=== PATIENT | female | born 1940 | race African-American/Black ===

== ENCOUNTER 2024-05-15 08:15 | Emergency (ER) | payer MEDICARE, SELFPAY ==
[2024-05-15 08:16] VITALS: BP 147/79; PULSE 77; RESP 18; TEMP 36.5; O2SAT 97; BMI 21.7
[2024-05-15 08:21] VITALS: BP 149/79; PULSE 75; O2SAT 97
--- NOTE | 2024-05-15 08:24 | PC.NURSE ---
in room talking with patient.
--- NOTE | 2024-05-15 08:29 | CT_ITS ---
PROCEDURE INFORMATION: Exam: CT Head Without Contrast Exam date and time: 05/15/2024 9:12 AM Age: 84 years old Clinical indication: Pain; Headache; Additional info: Global headache TECHNIQUE: Imaging protocol: Computed tomography of the head without contrast. Radiation optimization: All CT scans at this facility use at least one of these dose optimization techniques: automated exposure control; mA and/or kV adjustment per patient size (includes targeted exams where dose is matched to clinical indication); or iterative reconstruction. COMPARISON: No relevant prior studies available. FINDINGS: Brain: There is no evidence of acute intracranial hemorrhage, extra-axial collection or locoregional mass effect. There are scattered hypodensities in the periventricular and subcortical white matter. The appearance is nonspecific, but most likely represents chronic small vessel disease in a person of this age Cerebral ventricles: The ventricles, sulci and cisterns are normal in size and configuration for patient's age. No hydrocephalus or midline structure shift Pituitary gland and sella: Sellar/parasellar structures, craniocervical junction and orbits are unremarkable Paranasal sinuses: Visualized sinuses are unremarkable. No fluid levels. Mastoid air cells: Visualized mastoid air cells are well aerated. Auditory system: Nodular soft tissue thickening in the right external auditory canal. While nonspecific statistically represent cerumen. Bones: No calvarial fracture Soft tissues: Unremarkable. IMPRESSION: No acute intracranial abnormality. No calvarial fracture.
--- NOTE | 2024-05-15 08:32 | ED_ITS ---
Discharge Plan Disposition Patient Disposition: Home, Self-Care Prescriptions Prescriptions: New promethazine 12.5 mg tablet 12.5 mg PO TID PRN (Reason: nausea and vomiting) Qty: 12 0RF Rx Instructions: 3 doses during day; last dose no later than 4 hr before bedtime Referrals Follow up/Referrals: Provider,Referral, MD [Primary Care Provider] - See instructions Activity Restrictions/Add. Instructions Additional Instructions/Restrictions: At this time it was felt you are safe to be discharged home. If new or worsening symptoms please do not hesitate to return the emergency department. Please take your medications as prescribed. Clinical Impressions Clinical Impression: Headache, Nausea Print Language Print Language: Sinhala Discharge ED Provider: Jose Smith General Adult HPI General Chief complaint: Dizziness Stated complaint: light headed Time Seen by Provider: 05/15/24 08:18 History of Present Illness HPI narrative: Patient is a 84-year-old female with past medical history of previous headaches and nausea who presents emergency department for evaluation of headache and nausea. Onset was subacute over the last 2 weeks, she gets lightheaded when rising from a seated position, does not occur at rest. No vision changes, speech changes gait changes. Her headache is holocranial however slightly worse in the front. She has had these headaches before and attributed it to being dehydrated as she does not drink enough water. She is not on headache control medicines. She also has nausea for which she is on ondansetron which does not seem to be doing very much for her. She does not have abdominal pain or chest pain. No trauma or true syncope. There is associated dysuria. No other acute complaints at this time. Related Data Previous Rx's ?Medication ?Instructions ?Recorded promethazine 12.5 mg tablet 12.5 mg PO TID PRN nausea and 05/15/24 vomiting #12 tabs Allergies Allergy/AdvReac Type Severity Reaction Status Date / Time No Known Allergies Allergy Verified 05/15/24 08:38 [facility] Disclaimer: The information contained in this section may have been updated after the patient was seen, as this information can be updated by other users. Social History Smoking Status: Never smoker alcohol intake: never current occupational status: other ROS Obtained: Yes Systems reviewed as appropriate & no additional complaints except as documented Physical Exam General General appearance: alert and in no apparent distress Head Head exam: atraumatic and normocephalic Eye Eye exam: Present PERRL and EOMI ENT ENT exam: Present mucous membranes moist Neck Neck exam: Present normal inspection Chest Chest inspection: Present normal inspection and symmetric chest wall rise Respiratory Respiratory exam: Present normal lung sounds bilaterally; Absent respiratory distress Cardiovascular Cardiovascular exam: Present regular rate and normal rhythm Abdominal Exam Abdominal exam: Present soft; Absent tenderness Extremities Exam Extremities exam: Present normal inspection Neurological Exam Neurological exam: Present alert, oriented X3, CN II-XII intact, normal gait and other ([id number] intact bilaterally); Absent motor sensory deficit Psychiatric Psychiatric exam: Present normal affect Skin Skin exam: Present warm and dry Medical Decision Making Medical Records Screening: Per USPSTF and CDC recommendations, given the prevalence of disease in our region, it is our hospital?s policy to screen for HIV and viral Hepatitis for all patients aged 18 and over and those with ongoing risk factors. Jordon Inquiry Pt receiving controlled substance: No Vital Signs: 05/15/24 08:16 05/15/24 08:21 Temperature 97.7 F Temperature Source Oral Pulse Rate 75 Pulse Rate [Right] 77 Respiratory Rate 18 Blood Pressure 149/79 H Blood Pressure [Right Arm] 147/79 H Blood Pressure Mean [Right Arm] 101 02 Sat by Pulse Oximetry 97 97 Oxygen Delivery Method Room Air Lab Data Lab Results 05/15/24 08:30: Urine Color Yellow, Urine Appearance Clear, Urine pH 6.0, Ur Specific [place] 1.015, Urine Protein Negative, Urine Glucose (UA) Negative, Urine Ketones Negative, Urine Blood Negative, Urine Nitrate Negative, Urine Bilirubin Negative, Urine Urobilinogen 0.2, Ur Leukocyte Esterase 1+ A, Urine RBC None, Urine WBC 3-5, Ur Squamous Epith Cells Occasional, Ur Transition Epith Cell Occ, Urine Bacteria Trace 05/15/24 08:43: SARS-CoV-2 (PCR) Not detected, Influenza A Untype (PCR) Not detected, Influenza Type B (PCR) Not detected 05/15/24 08:48: WBC 3.5 L, RBC 4.47, Hgb 13.3, Hct 39.7, MCV 88.8, MCH 29.8, MCHC 33.6, RDW 15.4, Plt Count 177, MPV 7.6, Neut % (Auto) 49.1, Lymph % (Auto) 42.8, [place] % (Auto) 6.2, Eos % (Auto) 1.0, Baso % (Auto) 0.9, Neut # (Auto) 1.7 L, Lymph # (Auto) 1.5, [place] # (Auto) 0.2, Eos # (Auto) 0.0, Baso # (Auto) 0.0, Sodium 138, Potassium 3.8, Chloride 103, Carbon Dioxide 31 H, Anion Gap 7.8, BUN 15, Creatinine 1.10 H, Estimated Creat Clear 36, Estimated GFR 47 L, Est GFR ( Amer) 57 L, Glucose 101 H, Calcium 9.6, Total Bilirubin 0.9, AST 30, ALT 20, Alkaline Phosphatase 55, Total Protein 6.8, Albumin 4.1, Globulin 2.7, Albumin/Globulin Ratio 1.5, Lipase 119 05/15/24 08:48 05/15/24 08:48 Orders (Tests/Meds): ED MEDICATIONS Discontinued Medications Generic Name Dose Route Start Last Admin Trade Name Freq PRN Reason Stop Dose Admin Acetaminophen 1,000 mg 05/15/24 08:29 05/15/24 09:38 Acetaminophen 500mg Tab PO 05/15/24 08:30 1,000 mg ONCE ONE Administration Sodium Chloride 1,000 mls @ 999 mls/hr 05/15/24 08:29 05/15/24 09:38 Sod Chlor 0.9% 1000ml Bag IV 05/15/24 09:29 999 mls/hr .Q1H1M ONE Administration Promethazine HCl 12.5 mg 05/15/24 08:29 05/15/24 09:38 Promethazine Hcl 25mg/Ml 1ml Vial IV 05/15/24 08:30 12.5 mg ONCE ONE Administration Sodium Chloride 25 ml 05/15/24 08:29 05/15/24 09:38 Sodium Chloride 0.9% 25ml Bag IV 05/15/24 08:30 25 ml ONCE ONE Administration ORDERS Category Date Time Status CT head/brain wo con Stat Cat Scan 05/15/24 08:29 Completed CBC w/Auto Diff [Complete Blood Count Auto Diff] Stat Lab 05/15/24 08:48 Completed CMP [Comprehensive Metabolic Panel] Stat Lab 05/15/24 08:48 Completed Lipase Stat Lab 05/15/24 08:48 Completed Rapid PCR Covid and Flu A/B Stat Lab 05/15/24 08:43 Completed UA [Urinalysis and Microscopic] Stat Lab 05/15/24 08:30 Completed Urine Culture Stat Micro 05/15/24 08:30 Received ECG Data Tracing #1: Independently interpreted by me rate is 60, rhythm is regular, axis is normal, no ST elevation in anatomical contiguous leads, QTc 421. No evidence of electrical LVH, no dagger Q waves in the lateral leads, no prolonged QT or high degree AV block. Medical Decision Narrative: In summary patient is 84-year-old female past medical history described above presents emergency department for evaluation of subacute on chronic dizziness and nausea. Patient is hemodynamically stable nontoxic-appearing upon arrival, afebrile with a nonfocal neurologic exam. Unfortunately patient has no baseline labs or imaging in our system to compare to. Given this differential includes vasovagal presyncope, pancreatitis, urinary tract infection, primary headache, intracranial mass, among others. Workup will be conducted with hematologic labs, EKG, noncontrasted CT scan of the head, viral swab. Initial inventions include crystalloid bolus, Tylenol, Phenergan. Initial workup reviewed by me, hematologic labs are nonactionable, no significant leukocytosis, no TRISTEN, no critical electrolyte abnormality. Urinalysis interpreted by me and not consistent with infection. Viral swab negative. Noncontrasted CT scan informally visualized by me, no acute large intraparenchymal hemorrhage. Formal read shows no acute pathology. Upon repeat evaluation patient is well-appearing tolerating p.o. at bedside. Given this patient is appropriate for discharge at this time. Critical Care Critical Care Time Critical Care Time: No
[2024-05-15 08:39] LABS: Microscopic, Urine URINE MICROSCOPIC (MICROSCOPIC)
--- NOTE | 2024-05-15 08:40 | ECG_ITS ---
APPROVED REPORT Exam: Resting ECG HR:60 bpm ECG Measurements Heart Rate 60 AXES NJ 152 P 48 QRSd 98 QRS 7 QT 421 T 56 QTc 421 Conclusion SINUS RHYTHM NORMAL ECG Electronically signed by : NANETTE BENSON, 05/15/2024 15:01:30
[2024-05-15 08:47] LABS: Coronavirus 19, PCR Not Detected (NotDetected); Influenza A, PCR Not Detected (NotDetected); Influenza B, PCR Not Detected (NotDetected)
[2024-05-15 08:51] LABS: Appearance,Urine CLEAR (Clear); Bilirubin,Urine Negative (Negative); Blood, Urine Negative (Negative); Color,Urine YELLOW (Yellow); Glucose,Urine (UA) Negative (Negative); Ketones,Urine Negative (Negative); Leukocyte Esterase,Urine 1+ (Negative); Nitrate,Urine Negative (Negative); Protein,Urine Negative (Negative); Specific Gravity, Urine 1.015 (1.005-1.030); Urobilinogen,Urine 0.2 EU/dl (0.2)
[2024-05-15 09:00] LABS: Basophils % 0.9 % (0.1-2.0); Hematocrit 39.7 % (37.0-47.0); Hemoglobin 13.3 g/dL (12.2-16.2); Lymphocytes # 1.5 K/mm3 (0.7-4.5); Lymphocytes % 42.8 % (10-50); Mean Corpuscular HGB Conc 33.6 g/dL (31.8-35.4); Mean Corpuscular Hemoglobin 29.8 pg (27.0-31.2); Mean Corpuscular Volume 88.8 fl (81-99); Mean Platelet Volume 7.6 fl (7.4-10.4); Monocytes # 0.2 K/mm3 (0.1-1.0); Monocytes % 6.2 % (1.7-9.3); Neutrophils # 1.7 K/mm3 (1.8-7.8); Neutrophils % 49.1 % (37.0-80.0); Platelet Count 177 K/mm3 (142-424); Red Blood Count 4.47 M/mm3 (4.20-5.40); Red Cell Distribution Width 15.4 % (11.5-17.5); White Blood Count 3.5 K/mm3 (4.8-10.8)
[2024-05-15 09:11] LABS: Alanine Aminotransferase 20 U/L (12-78); Albumin Level 4.1 g/dl (3.5-5.0); Albumin/Globulin Ratio 1.5 (1.1-1.8); Alkaline Phosphatase 55 U/L (38-126); Anion Gap 7.8 mEq/L (5-15); Aspartate Amino Transferase 30 U/L (14-36); Bilirubin,Total 0.9 mg/dl (0.2-1.3); Blood Urea Nitrogen 15 mg/dl (7-17); Calcium 9.6 mg/dl (8.4-10.2); Carbon Dioxide 31 mmol/L (22.0-30.0); Chloride 103 mmol/L (98-107); Creatinine Clearance Estimated 36 mL/min (50-200); Estimated Glomerular Filt Rate 47 ml/min (>60); GFR (African American) 57 ML/MIN (>60); Globulin 2.7 g/dL (1.3-3.2); Glucose 101 mg/dl (74-100); Lipase 119 U/L (23-300); Potassium 3.8 mmoL/L (3.5-5.1); Sodium 138 mmol/L (136-145); Total Protein,Serum 6.8 g/dl (6.3-8.2)
[2024-05-15 09:30] LABS: Bacteria,Urine Trace /lpf; Squamous Epithelial Cell,Urine Occasional #/hpf (0-5); Transitional Epi Cells,Urine OCC #/lpf (0-3)
[2024-05-15] MEDS: 0.9 % SODIUM CHLORIDE 1000ML 1,000 ML 999 ML IV (09:38)
[2024-05-15] MEDS: PROMETHAZINE HCL 25MG/ML 1ML VIAL 12.5 MG IV (09:38)
[2024-05-15] MEDS: ACETAMINOPHEN 500MG TAB 1000 MG PO (09:38)
[2024-05-15] MEDS: SODIUM CHLORIDE 0.9% 25ML BAG 25 ML IV (09:38)
[2024-05-15 10:09] VITALS: BP 140/75; PULSE 75; RESP 18; TEMP 36.5; O2SAT 98
== END 2024-05-15 10:31 | disposition home or self-care (01) ==
PROVIDERS: Emergency Provider Emergency Medicine
DX: R51.9 Headache, unspecified (principal); R11.0 Nausea; R42 Dizziness and giddiness; R30.0 Dysuria
CPT/HCPCS: 70450; 80053; 81001; 83690; 85025; 87086; 87636; 93005; 96361; 96374; 99284; J2550; J7030